=== PATIENT | female | born 1965 | race Caucasian/White ===

== ENCOUNTER 2023-08-31 14:01 | Inpatient (IN) ==
[2023-08-31] MEDS ORDERED: SODIUM CHLORIDE 0.9% 1,000 ML IV ONE (14:17)
[2023-08-31] MEDS ORDERED: ONDANSETRON INJ 2 MG/ML 2 ML VIAL IV STA (14:17)
--- NOTE | 2023-08-31 14:17 | ED Triage Note ---
Date of Service August 31, 2023 History of Present Illness This patient was briefly evaluated while in triage. An abbreviated physical exam was performed. This patient is a 57-year-old Female who presents to the ED for evaluation of vomiting that began today. Diagnosed with diverticulitis yesterday, was not having vomiting yesterday. Pain is a little better now in abdomen. Physical Exam CONSTITUTIONAL: uncomfortable SKIN: pink, warm, dry CARDIAC: regular rate and rhythm RESPIRATORY: in no respiratory distress, lungs clear to auscultation ABDOMEN: diffusely tender Initial orders for labs and / or imaging were placed and patient was placed in the waiting area until a bed is available. Please see further documentation for the full ED course.
--- NOTE | 2023-08-31 15:21 | Emergency Department Note ---
History of Present Illness General Chief complaint: Vomiting Stated complaint: VOMITING Time Seen by Provider: 08/31/23 15:13 Source: patient, family (), RN notes reviewed and old records reviewed (Reviewed a CAT scan that she had done on 08-30-2023) Mode of arrival: ambulatory Limitations: no limitations History of Present Illness Maximum Pain Intensity: 5 This patient is a 57-year-old female who I saw yesterday and diagnosed with diverticulitis, comes back after having multiple episodes of vomiting. I had talked her about staying in the hospital versus discharge yesterday but she wanted to go home. I put her on Cipro and Flagyl as she does have multiple other allergies. She says that the pain is about 50% last. She has not been throwing up blood. She not sure when her last bowel movement was she did not have one today. No dysuria hematuria no trauma or injury. She did okay taking the meds last night when she was here. she is concerned it could be related to the medication does tend to be sensitive to medications Home Medications Medication Instructions Recorded Confirmed Type gabapentin 300 mg capsule 300 mg PO TID PRN Pain 07/25/23 08/31/23 History ondansetron HCl 4 mg tablet 4 mg PO PRN #30 tabs 07/25/23 08/31/23 Rx ubrogepant 100 mg tablet (Ubrelvy) 100 mg PO ONCE PRN migraine 07/25/23 08/31/23 Rx headache #10 tabs cholecalciferol (vitamin D3) 1,250 50,000 unit PO .weekly #14 caps 07/28/23 08/31/23 Rx mcg (50,000 unit) capsule ciprofloxacin HCl 500 mg tablet 500 mg PO BID #20 tabs 08/30/23 08/31/23 Rx (Cipro) metronidazole 500 mg tablet 500 mg PO TID #30 tabs 08/30/23 08/31/23 Rx multivitamin 1 tab PO DAILY 08/30/23 08/31/23 History tramadol 50 mg tablet 50 mg PO Q6H PRN pain #14 tabs 08/30/23 08/31/23 Rx Allergies Allergy/AdvReac Type Severity Reaction Status Date / Time azithromycin Allergy Unknown UTI Verified 08/31/23 17:11 bee venom protein (honey bee) Allergy Unknown Unknown Verified 08/31/23 17:11 codeine Allergy Unknown can not Verified 08/31/23 17:11 breathe influenza virus vaccine, Allergy Unknown Unknown Verified 08/31/23 17:11 specific Penicillins Allergy Unknown Rash Verified 08/31/23 17:11 aspirin Allergy Rash Verified 08/31/23 17:11 avocado Allergy Unknown Verified 08/31/23 17:11 hydromorphone [From Dilaudid] Allergy can not Verified 08/31/23 17:11 breathe morphine Allergy can not Verified 08/31/23 17:11 breath Past Med/Surg History Social History Smoking Status: Former smoker Hx Alcohol Use: Yes Alcohol type: beer Hx Substance Use: No Preferred Language: Belarusian Communication Ability: Effective Test Eng Required: No Beliefs That Will Affect Care: None Current Living Situation: Significant Other Other Information That Helps Us Care for You: No Feels Safe at Home: Yes Safety Concerns: Feels Safe At This Time Assistive Devices: None and Glasses Immunizations: Past med historydiverticulitis Social history she is does not smoke Review of Systems A total of 10 systems reviewed and were otherwise negative Physical Exam Vital Signs Vital Signs - 24 hr 08/31/23 14:12 08/31/23 16:01 Temperature 36.1 C L Temperature Source Temporal Artery Scan Pulse Rate 73 Pulse Rate [Apical] 95 H Respiratory Rate 21 18 Blood Pressure 137/101 H Blood Pressure [Right Arm] 161/83 H Blood Pressure Mean 113 Blood Pressure Mean [Right Arm] 109 Pulse Oximetry 97 97 Oxygen Delivery Method Room Air Room Air Sepsis Recent Fever Within 48 Hours No Sepsis New/Unexplained Change in Mental Status N/A Sepsis Action Taken by Nursing No Action Required General: Well developed well nourished middle-age female who is actively vomiting with yellowish emesis in an emesis bag but in no acute respiratory distress, breathing comfortably on room air. Normal speech HEENT: Normal cephalic atraumatic. Pupils are equal round and reactive to light. Extraocular movements are intact. Oropharynx is pink with moist mucous membranes. No swelling of the mouth lips or tongue. Neck: Supple with a midline trachea. No meningeal signs or stiffness, no JVD or bruits. No Stridor. Chest: Clear to auscultation bilaterally. No wheezes or rhonchi. No increased work of breathing. Heart: Regular rate and rhythm without murmurs or gallops. Abdomen: Soft ,moderately tender in left lower quadrant without rebound guarding or rigidity. Extremities: No cyanosis clubbing or edema. No calf tenderness or assymetry Spine/Back. Non tender to palpation. No CVA tenderness Skin: Good turgor without rashes. Neurologic exam: Cranial nerves two through 12 are intact. Motor and sensation are intact and symmetrical throughout. Course Administered Medications Parenteral Electrolytes (Plasma-Lyte A Ph 7.4) 1,000 mls @ 125 mls/hr IV .Q8H NARENDRA Stop: 09/30/23 17:29 Last Infusion: 08/31/23 18:01 Dose: 0 mls/hr Documented By: Admin: 08/31/23 17:35 Dose: 125 mls/hr Documented By: HANNA Ciprofloxacin (Cipro / D5w) 400 mg in 200 mls @ 100 mls/hr IV Q12H NARENDRA; Protocol Stop: 09/10/23 19:59 Last Admin: 08/31/23 19:23 Dose: 100 mls/hr Documented By: Metronidazole (Flagyl) 500 mg in 100 mls @ 100 mls/hr IV Q8H NARENDRA; Protocol Stop: 09/10/23 17:59 Last Infusion: 08/31/23 19:23 Dose: 0 mls/hr Documented By: Admin: 08/31/23 18:01 Dose: 100 mls/hr Documented By: NRPipe Discontinued Medications Sodium Chloride (Nss) 1,000 mls @ 999 mls/hr IV .Q1H1M ONE Stop: 08/31/23 15:17 Last Infusion: 08/31/23 17:13 Dose: 0 mls/hr Documented By: Admin: 08/31/23 16:01 Dose: 999 mls/hr Documented By: NRB Parenteral Electrolytes (Plasma-Lyte A Ph 7.4) 1,000 mls @ 999 mls/hr IV .Q1H1M ONE Stop: 08/31/23 18:26 Last Admin: 08/31/23 17:55 Dose: Not Given Documented By: HANNA Pantoprazole Sodium 40 mg/ (Syringe) 10 mls @ 5 mls/min IV NOW ONE Stop: 08/31/23 20:01 Last Admin: 08/31/23 20:32 Dose: 5 mls/min Documented By: Famotidine 20 mg/ Syringe 5 mls @ 2.5 mls/min IV NOW ONE Stop: 08/31/23 20:16 Last Admin: 08/31/23 20:32 Dose: 2.5 mls/min Documented By: Miscellaneous (Patient's Height &/Or Weight Needed) 1 each N/A NOW STA Stop: 08/31/23 20:04 Last Admin: 08/31/23 20:12 Dose: 1 each Documented By: Ondansetron HCl (Ondansetron Inj 2 Mg/Ml 2 Ml Vial) 4 mg IV NOW STA Stop: 08/31/23 14:18 Last Admin: 08/31/23 16:02 Dose: 4 mg Documented By: NRPipe Medical Decision Making Differential Diagnosis Diverticulitis, dehydration, diverticular abscess, colitis, electrolyte or metabolic abnormality Medical Records Attestation: I reviewed the patient's medical records. Home Medications Current Medication List: was personally reviewed by me Laboratory Data Attestation: I reviewed the patient's lab results. 08/31/23 15:55 08/31/23 15:55 Lab Results 08/31/23 08/31/23 08/31/23 Range/Units 15:55 15:55 15:55 WBC 11.91 H (4.8-10.8) K/ul RBC 4.52 (4.20-5.40) M/uL Hgb 14.2 (12.0-16.0) g/dl Hct 39.6 (37.0-47.0) % MCV 87.6 (80.0-100.0) fL MCH 31.4 (25.0-34.0) pg MCHC 35.9 (32.0-36.0) g/dL RDW Std Deviation 39.0 (36.4-46.3) fL RDW Coeff of Mt 12.1 (11.5-14.5) % Plt Count 302 (130-400) K/uL MPV 11.2 (9.4-12.4) fL Immature Gran % (Auto) 0.5 % Neut % (Auto) 88.6 % Lymph % (Auto) 8.1 % [place] % (Auto) 2.5 % Eos % (Auto) 0.0 % Baso % (Auto) 0.3 % Neut # (Auto) 10.55 H (1.40-6.50) K/uL Lymph # (Auto) 0.97 L (1.20-3.40) K/uL [place] # (Auto) 0.30 (0.11-0.59) K/uL Eos # (Auto) 0.00 (0.00-0.50) K/uL Baso # (Auto) 0.03 (0.00-0.20) K/uL Immature Gran # (Auto) 0.06 (0.01-0.20) K/uL Sodium 137 (136-145) mmol/L Potassium 3.5 (3.5-5.1) mmol/L Chloride 103 (98-107) mmol/L Carbon Dioxide 23 (21-32) mmol/L Anion Gap 11 (3-11) BUN 19 (6-23) mg/dl Creatinine 0.77 (0.6-1.2) mg/dl Est Cr Clr Drug Dosing Not Reportable Est GFR ( Amer) 98.6 ml/min Est GFR (Non-Af Amer) 85.1 ml/min BUN/Creatinine Ratio 24.7 H (10-20) Glucose 148 H (70-99(Fasting)) mg/dl Calcium 9.5 (8.6-10.3) mg/dl Magnesium 1.9 (1.7-2.4) mg/dl Total Bilirubin 0.7 (0.2-1.0) mg/dl AST 38 (13-39) U/L ALT 54 H (7-52) U/L Alkaline Phosphatase 89 (34-104) U/L Total Protein 7.6 (6.0-8.3) gm/dl Albumin 4.4 (3.4-5.0) gm/dl Globulin 3.2 (2.5-4.0) gm/dl Albumin/Globulin Ratio 1.4 (0.9-2) Lipase 21 (11-82) U/L Urine Color Dark Yellow Urine Appearance Turbid A (Clear) Urine pH 5.5 (4.5-7.5) Ur Specific [place] 1.033 H (1.000-1.030) Urine Protein 2+ H (Negative) Urine Glucose (UA) Negative (Negative) Urine Ketones 2+ H (Negative) Urine Blood 2+ H (Negative) Urine Nitrite Positive A (Negative) Urine Bilirubin 1+ H (Negative) Urine Urobilinogen Negative (Negative) Ur Leukocyte Esterase 1+ H (Negative) Urine WBC (Auto) 5-10 H (0-5) /hpf Urine RBC (Auto) 0-4 (0-4) /hpf U Hyaline Cast (Auto) 10-30 H (0-5) /lpf U Epithel Cells (Auto) >30 H (0-5) /lpf Urine Bacteria (Auto) 1+ H (Negative) Urine Crystals Not Reportable Urine Yeast Not Reportable MDM Narrative This patient comes in as scribed above she was diagnosed with diverticulitis yesterday returns with nausea and vomiting and not feeling well. She was seen in triage her orders were placed. IV access was established and she was hydrated 1 L normal saline bolus and Zofran 4 mg IV which were ordered in triage. I repeated her labs. Her white count remains mildly elevated 11. She is not anemic. She is no sick electrolyte or metabolic abnormalities. Nothing she has liver gallbladder or pancreas disease acutely. With the IV Zofran and IV fluids she was feeling a lot better but I do think needs to be admitted/observed for further inpatient treatment when she had diverticulitis before they had to do IV antibiotics. She is a hard time tolerating a lot of different medications. I did discuss case and consulted with Dr. Ryan as well as Janine, our ED pharmacist, and they had recommended that we continue this Cipro for 100 mg IV as well as IV Flagyl. She has no evidence discussed she had an allergic reaction. She has had no facial swelling shortness of breath or hives. Dr. ryan saw the patient and will admit/observe her for these measures. Impression & Plan Abdominal pain, Acute diverticulitis, Vomiting, Acute dehydration Discharge Plan Visit Data Chief Complaint: Vomiting Stated Complaint: VOMITING ED Provider: Joel Vidales Discharge Problem: Abdominal pain, Acute diverticulitis, Vomiting, Acute dehydration Patient Disposition: Admitted As Inpatient Discharge Instructions Interventions: ED Discharge Assessment Last Done: 08/31/23 19:55
[2023-08-31 16:29] LABS: Basophils # (auto) 0.03 K/uL (0.00-0.20); Basophils % (auto) 0.3 %; Hematocrit (blood only) 39.6 % (37.0-47.0); Hemoglobin 14.2 g/dl (12.0-16.0); Immature Granulocytes # (auto) 0.06 K/uL (0.01-0.20); Immature Granulocytes % (auto) 0.5 %; Lymphocytes # (auto) 0.97 K/uL (1.20-3.40); Lymphocytes % (auto) 8.1 %; Mean Corpuscular Hemoglobin 31.4 pg (25.0-34.0); Mean Corpuscular Hgb Conc 35.9 g/dL (32.0-36.0); Mean Corpuscular Volume 87.6 fL (80.0-100.0); Mean Platelet Volume 11.2 fL (9.4-12.4); Monocytes % (auto) 2.5 %; Neutrophils # (auto) 10.55 K/uL (1.40-6.50); Neutrophils % (auto) 88.6 %; Platelet Count 302 K/uL (130-400); RDW Coefficient of Variation 12.1 % (11.5-14.5); Red Blood Count 4.52 M/uL (4.20-5.40); White Blood Count 11.91 K/ul (4.8-10.8)
[2023-08-31 16:34] LABS: Appearance Urine Turbid (Clear); Bacteria Urine Automated 1+ (Negative); Blood Urine 2+ (Negative); Color Urine Dark Yellow; Epithelial Cell Urine Auto >30 /lpf (0-5); Glucose Urine UA Negative (Negative); Ketones Urine 2+ (Negative); Leukocyte Esterase Urine 1+ (Negative); Nitrite Urine Positive (Negative); Protein Urine 2+ (Negative); RBC Urine Automated 0-4 /hpf (0-4); Specific Gravity Urine 1.033 (1.000-1.030); Urobilinogen Urine Negative (Negative); pH Urine 5.5 (4.5-7.5)
[2023-08-31 16:36] LABS: Bilirubin Urine 1+ (Negative)
[2023-08-31 16:41] LABS: Alanine Aminotransferase 54 U/L (7-52); Albumin Globulin Ratio 1.4 (0.9-2); Albumin Level 4.4 gm/dl (3.4-5.0); Alkaline Phosphatase 89 U/L (34-104); Anion Gap 11 (3-11); Aspartate Aminotransferase 38 U/L (13-39); BUN Creatinine Ratio 24.7 (10-20); Bilirubin,Total 0.7 mg/dl (0.2-1.0); Blood Urea Nitrogen 19 mg/dl (6-23); Calcium 9.5 mg/dl (8.6-10.3); Carbon Dioxide 23 mmol/L (21-32); Chloride 103 mmol/L (98-107); Est GFR (African American) 98.6 ml/min; Est GFR (Non-African American) 85.1 ml/min; Globulin 3.2 gm/dl (2.5-4.0); Glucose 148 mg/dl (70-99(Fasting)); Lipase 21 U/L (11-82); Magnesium 1.9 mg/dl (1.7-2.4); Potassium 3.5 mmol/L (3.5-5.1); Sodium 137 mmol/L (136-145); Total Protein 7.6 gm/dl (6.0-8.3)
--- NOTE | 2023-08-31 17:25 | History & Physical Report ---
Date of Service August 31, 2023 Assessment & Plan (1) Acute diverticulitis: Plan: Nausea/vomiting, diverticulitis failing outpt tx Patient was discharged home on 08/30 on ciprofloxacin and Flagyl, has continued to have intractable nausea/vomiting and pain and cannot keep medications down Mild leukocytosis without left shift, no gross electrolyte derangement, no ANGI CTA/P from 08/30/2023: Diverticulitis of the sigmoid colon with wall thickening and inflammation. Gallbladder upper limit of normal in diameter without signs of acute ductal obstruction. Bilirubin is not elevated, AST is normal, ALT chronically with trace elevation - PCN allergic. DId ok with cipro/flagyl but then had vomiting. No skin rash, did tolerate initial dose in ER without reaction. We will switch to IV, and treat for potential gastritis with PPI/H2 -Zofran as needed Tylenol first-line IV for pain, patient with reactions to morphine in the past. Pt has tolerated tramadol in the past, this is continued. No ANGI, is with contracted BUN/creatinine ratio and appears dry. 1 L of Plasma-Lyte given and well continue 1 L of supplemental fluids until p.o. improves - Last dose of cipro+flagyl this AM at 9am. Vomited at 10-11 and 'tasted like medicine'. Unclear how much was actually kept down --> Start cipro IV @ 2000. Start flagyl q8h on admit (2) Vomiting: (3) Chronic migraine w/o aura w/o status migrainosus, not intractable: Plan: History of chronic migraine No acute change in management at time of admission (4) Labile blood glucose: Plan: - BSG 148 on admit - Pt reprots has had labile BSG and dropped to 40s even with small amounts of scaled insulin in the past - Insulin deferred - spot check BSG, daily BMP. If >180 consistently --> conservative sliding scale Plan DVT prophylaxis: Lovenox Disposition: Medical/surgical Diet: Clears as tolerated CODE STATUS: Full code History of Present Illness Primary Care Provider: ELEUTERIO Singh is a 57-year-old female with a past medical history of diverticulitis and chronic migraine who was seen in the ER yesterday and returns with multiple episodes of vomiting. Patient preferred discharge home yesterday but has continued to have recurrent nausea/vomiting and is recommended for admission. Seen at the bedside with her present. She reports that she has had several days of abdominal pain, was seen in the ER yesterday and wanted to go home as she had had 1 episode of this before but while she tolerated the dose of antibiotics in the ER and 1 dose last night after taking antibiotics this morning about an hour or 2 later she vomited and has continued to feel very poor. Cannot keep liquids down. Has started to feel weak and washed out. Continues to have left lower abdominal pain maybe 50% better than prior, but still bothersome to her. No bloody or black bowel movements. Emesis has been bright yellow "like a [place]га ". Has not had chills, has felt warm. She does not have history of diabetes, notes that she was put on sliding scale insulin once in the past and has very labile blood sugar and rapidly drops into the 40s. She does not take any antiglycemic's normally does not use tobacco products or alcohol. Full code Allergies Allergy/AdvReac Type Severity Reaction Status Date / Time azithromycin Allergy Unknown UTI Verified 08/31/23 17:11 bee venom protein (honey bee) Allergy Unknown Unknown Verified 08/31/23 17:11 codeine Allergy Unknown can not Verified 08/31/23 17:11 breathe influenza virus vaccine, Allergy Unknown Unknown Verified 08/31/23 17:11 specific Penicillins Allergy Unknown Rash Verified 08/31/23 17:11 aspirin Allergy Rash Verified 08/31/23 17:11 avocado Allergy Unknown Verified 08/31/23 17:11 hydromorphone [From Dilaudid] Allergy can not Verified 08/31/23 17:11 breathe morphine Allergy can not Verified 08/31/23 17:11 breath Home Medications Medication Instructions Recorded Confirmed Type gabapentin 300 mg capsule 300 mg PO TID PRN Pain 07/25/23 08/31/23 History ondansetron HCl 4 mg tablet 4 mg PO PRN #30 tabs 07/25/23 08/31/23 Rx ubrogepant 100 mg tablet (Ubrelvy) 100 mg PO ONCE PRN migraine 07/25/23 08/31/23 Rx headache #10 tabs cholecalciferol (vitamin D3) 1,250 50,000 unit PO .weekly #14 caps 07/28/23 08/31/23 Rx mcg (50,000 unit) capsule ciprofloxacin HCl 500 mg tablet 500 mg PO BID #20 tabs 08/30/23 08/31/23 Rx (Cipro) metronidazole 500 mg tablet 500 mg PO TID #30 tabs 08/30/23 08/31/23 Rx multivitamin 1 tab PO DAILY 08/30/23 08/31/23 History tramadol 50 mg tablet 50 mg PO Q6H PRN pain #14 tabs 08/30/23 08/31/23 Rx Past Med/Surg History Social History Smoking Status: Never smoker Preferred Language: Arabic Feels Safe at Home: Yes Physical Exam Physical Exam: General: A&Ox3. NAD. Cooperative. HEENT: Atraumatic, normocephalic. MM dry. Vision/hearing intact Pulm: CTAB A&P. -wheezes, -rales, -rhonchi. Symmetrical chest rise. No increased work of breathing. No respiratory distress. Cardiac: RRR, -mrg. Radial pulses intact and symmetrical. Abdominal: LLQ TTP without rebound/guarding. Ext: Warm, dry. No edema Results & Data Results & Data Vital Signs (Past 12 Hours) Vital Signs Temp Pulse Resp BP Pulse Ox O2 Del Method 08/31/23 14:12 36.1 C L 73 21 137/101 H 97 Room Air PG Care Time/CCT Total # of Minutes Spent Total Time Spent with Patient: Total time spent is greater than 50% in coordination of care (as documented) at patient's floor/unit and/or counseling patient: Coding Level of Care Code 33018 INT INP/OBS CARE 2/55MIN Diagnoses Acute diverticulitis K57.92 Vomiting R11.10 Chronic migraine w/o aura w/o status migrainosus, not intractable G43.709 Labile blood glucose R73.09
[2023-08-31] MEDS ORDERED: ONDANSETRON INJ 2 MG/ML 2 ML VIAL IV PRN (17:26)
[2023-08-31] MEDS ORDERED: PLASMA-LYTE A 1,000 ML IV ONE (17:26)
[2023-08-31] MEDS: PLASMA-LYTE A 1,000 ML IV SCH (17:35)
[2023-08-31] MEDS: metroNIDAZOLE 500 MG/100 ML BAG IV SCH (18:01)
[2023-08-31] MEDS: CIPROFLOXACIN / D5W 400 MG/200 ML BAG IV SCH (19:23)
[2023-08-31] MEDS ORDERED: traMADol HCL 50 MG TABLET PO PRN (19:55)
[2023-08-31] MEDS ORDERED: PANTOprazole 40 MG in SYRINGE 0 ML IV ONE (20:00)
[2023-08-31] MEDS ORDERED: Patient's HEIGHT &/or WEIGHT Needed STA (20:03)
[2023-08-31] MEDS ORDERED: FAMOTIDINE 20 MG in SYRINGE 3 ML IV ONE (20:15)
[2023-09-01] MEDS: metroNIDAZOLE 500 MG/100 ML BAG IV SCH ×3 (01:45→17:01)
[2023-09-01] MEDS: PLASMA-LYTE A 1,000 ML IV SCH ×3 (08:21→19:10)
[2023-09-01] MEDS: ACETAMINOPHEN 1,000 MG/100 ML VIAL IV PRN ×2 (08:24→21:45)
[2023-09-01] MEDS: CIPROFLOXACIN / D5W 400 MG/200 ML BAG IV SCH ×2 (08:27→19:45)
[2023-09-01] MEDS: PANTOprazole 40 MG in SYRINGE 0 ML IV SCH (10:37)
--- NOTE | 2023-09-01 15:35 | Hospitalist Progress Note ---
Date of Service September 01, 2023 Assessment & Plan (1) Acute diverticulitis: Plan: uncomplicated sigmoid colon remains on IV cipro/flagyl - continue such leave on clears - still with considerable LLQ pain supportive care including IVF replace low K repeat BMP/mag in am will need colonoscopy in 6-8 weeks as outpatient this is her 2nd episode of diverticulitis to her recollection (2) Chronic migraine w/o aura w/o status migrainosus, not intractable: Plan: has migraine at this time tramadol prn tylenol prn (3) Labile blood glucose: Plan: Hba1c 5.4% in June 2023 glucose stable while here (4) Hypokalemia: Plan: replace IV + PO repeat BMP with mag in am Plan DVT prophylaxis: Lovenox pt requests to talk with plug maker about diverticulosis diet Admission and Anticipated Discharge Date Admission Date: August 31, 2023 Subjective still with considerable LLQ pain improved from admission, but still severe no further nausea/emesis no abd pain in RUQ (I told her that CT showed gallstones) tolerating clear liquids no fever has severe migraine previously took tramadol chronically for such she was taken off the tramadol by neurology prescribed ubrogepant by neuro but "it doesn't work" Review of Systems Review of Systems: gen - no fevers or chills; fatigued cv - no chest pain pulm - no dyspnea Physical Exam Physical Exam: gen - looks uncomfortable, awake/alert mouth - MMM neck - no JVD heart - RRR, s1 s2, no murmur lungs - CTA b/l abd - soft, tender LLQ to palpation; BS+; no peritoneal signs; RUQ - NO TENDERNESS to palpation ext - no edema, pulses 2+ b/l Results & Data Results & Data Vital Signs (Past 12 Hours) Vital Signs Temp Pulse Resp BP Pulse Ox O2 Del Method 09/01/23 15:30 36.7 C 63 18 111/72 97 Room Air 09/01/23 07:41 36.8 C 61 16 115/78 95 Room Air Laboratory Results Laboratory Results - last 24 hr 09/01/23 09/01/23 15:54 15:54 WBC 7.76 RBC 4.01 L Hgb 12.5 Hct 35.4 L MCV 88.3 MCH 31.2 MCHC 35.3 RDW Std Deviation 39.0 RDW Coeff of Mt 12.1 Plt Count 273 MPV 10.7 Sodium 140 Potassium 3.2 L Chloride 107 Carbon Dioxide 25 Anion Gap 8 BUN 11 Creatinine 0.81 Est Cr Clr Drug Dosing 81.3 Est GFR ( Amer) 92.8 Est GFR (Non-Af Amer) 80.1 BUN/Creatinine Ratio 13.6 Glucose 103 H Calcium 8.6 PG Care Time/CCT Total # of Minutes Spent Total Time Spent with Patient: Total time spent is greater than 50% in coordination of care (as documented) at patient's floor/unit and/or counseling patient: Coding Level of Care Code 15290 SUB INP/OBS CARE 12/11MIN Diagnoses Acute diverticulitis K57.92 Chronic migraine w/o aura w/o status migrainosus, not intractable G43.709 Labile blood glucose R73.09 Hypokalemia E87.6
[2023-09-01 16:12] LABS: Hematocrit (blood only) 35.4 % (37.0-47.0); Hemoglobin 12.5 g/dl (12.0-16.0); Mean Corpuscular Hemoglobin 31.2 pg (25.0-34.0); Mean Corpuscular Hgb Conc 35.3 g/dL (32.0-36.0); Mean Corpuscular Volume 88.3 fL (80.0-100.0); Mean Platelet Volume 10.7 fL (9.4-12.4); Platelet Count 273 K/uL (130-400); RDW Coefficient of Variation 12.1 % (11.5-14.5); Red Blood Count 4.01 M/uL (4.20-5.40); White Blood Count 7.76 K/ul (4.8-10.8)
[2023-09-01 16:38] LABS: BUN Creatinine Ratio 13.6 (10-20); Calcium 8.6 mg/dl (8.6-10.3); Creatinine Clr Calc Pharmacy 81.3 ml/min; Est GFR (African American) 92.8 ml/min; Est GFR (Non-African American) 80.1 ml/min; Potassium 3.2 mmol/L (3.5-5.1)
[2023-09-01] MEDS ORDERED: POTASSIUM CHLORIDE CRTAB 20 MEQ TABCR PO STA (18:19)
[2023-09-01] MEDS: NSS + 20MEQ KCL 20 MEQ/1,000 ML BAG IV SCH (19:45)
[2023-09-02] MEDS: metroNIDAZOLE 500 MG/100 ML BAG IV SCH ×3 (02:05→18:06)
[2023-09-02] MEDS ORDERED: Nursing to Pharmacy Communication SCH (03:30)
[2023-09-02 07:58] LABS: BUN Creatinine Ratio 10.4 (10-20); Calcium 8.8 mg/dl (8.6-10.3); Creatinine Clr Calc Pharmacy 85.5 ml/min; Est GFR (African American) 98.6 ml/min; Est GFR (Non-African American) 85.1 ml/min; Potassium 3.4 mmol/L (3.5-5.1)
[2023-09-02] MEDS: CIPROFLOXACIN / D5W 400 MG/200 ML BAG IV SCH ×2 (08:23→20:29)
[2023-09-02] MEDS ORDERED: POTASSIUM CHLORIDE CRTAB 20 MEQ TABCR PO STA (11:15)
[2023-09-02] MEDS: NSS + 20MEQ KCL 20 MEQ/1,000 ML BAG IV SCH ×2 (11:39→23:54)
[2023-09-02] MEDS: PANTOprazole 40 MG in SYRINGE 0 ML IV SCH (11:56)
--- NOTE | 2023-09-02 19:01 | Hospitalist Progress Note ---
Date of Service September 02, 2023 Assessment & Plan (1) Acute diverticulitis: Plan: uncomplicated sigmoid colon remains on IV cipro/flagyl - continue such leave on clears - still with considerable LLQ pain supportive care including IVF replace low K repeat BMP/mag in am will need colonoscopy in 6-8 weeks as outpatient this is her 2nd episode of diverticulitis to her recollection (2) Chronic migraine w/o aura w/o status migrainosus, not intractable: Plan: has migraine at this time tramadol prn tylenol prn (3) Labile blood glucose: Plan: Hba1c 5.4% in June 2023 glucose stable while here (4) Hypokalemia: Plan: replace IV + PO repeat BMP with mag in am Plan DVT prophylaxis: Lovenox pt requests to talk with finish inspector about diverticulosis diet Admission and Anticipated Discharge Date Admission Date: September 01, 2023 Subjective Patient states that she is feeling better. Her pain is improving. She had a bowel movement. She is tolerating a clear liquid diet but is not overdoing it for the time being. She wants to take it slow. Review of Systems Review of Systems: All systems reviewed & are unremarkable except as noted in Subjective Physical Exam Physical Exam: General: Awake, conversant Heart: S1, S2/regular rate and rhythm, no murmur rubs or gallops Lungs: Clear to auscultation bilaterally. Normal effort Abdomen: Soft/nondistended. Tenderness to palpation in the left lower quadrant. No rebound, rigidity or guarding. No hepatosplenomegaly Extremities: No clubbing/cyanosis. No edema Behavior: Appropriate, cooperative Results & Data Results & Data Vital Signs (Past 12 Hours) Vital Signs Temp Pulse Resp BP Pulse Ox O2 Del Method 09/02/23 15:18 36.7 C 68 20 134/88 95 Room Air 09/02/23 07:51 36.7 C 61 16 117/74 96 Room Air Laboratory Results Abnormal lab results 09/02/23 Range/Units 07:04 Potassium 3.4 L (3.5-5.1) mmol/L Chloride 108 H (98-107) mmol/L PG Care Time/CCT Total # of Minutes Spent Total Time Spent with Patient: Total time spent is greater than 50% in coordination of care (as documented) at patient's floor/unit and/or counseling patient: Coding Level of Care Code 11416 SUB INP/OBS CARE MIN Diagnoses Acute diverticulitis K57.92 Chronic migraine w/o aura w/o status migrainosus, not intractable G43.709 Labile blood glucose R73.09 Hypokalemia E87.6
[2023-09-03] MEDS: metroNIDAZOLE 500 MG/100 ML BAG IV SCH ×3 (01:39→17:40)
[2023-09-03] MEDS: CIPROFLOXACIN / D5W 400 MG/200 ML BAG IV SCH ×2 (07:56→19:33)
[2023-09-03 09:47] LABS: BUN Creatinine Ratio 7.1 (10-20); Creatinine Clr Calc Pharmacy 78.3 ml/min; Est GFR (African American) 88.8 ml/min; Est GFR (Non-African American) 76.6 ml/min; Potassium 3.6 mmol/L (3.5-5.1)
[2023-09-03] MEDS: PANTOprazole 40 MG in SYRINGE 0 ML IV SCH (10:09)
[2023-09-03] MEDS: NSS + 20MEQ KCL 20 MEQ/1,000 ML BAG IV SCH (13:56)
--- NOTE | 2023-09-03 17:14 | Hospitalist Progress Note ---
Date of Service September 03, 2023 Assessment & Plan (1) Acute diverticulitis: Plan: uncomplicated sigmoid colon remains on IV cipro/flagyl - continue such Advance to full's today as patient feels improved. supportive care including IVF replace low K repeat BMP in am will need colonoscopy in 6-8 weeks as outpatient this is her 2nd episode of diverticulitis to her recollection (2) Chronic migraine w/o aura w/o status migrainosus, not intractable: Plan: has migraine at this time tramadol prn tylenol prn (3) Labile blood glucose: Plan: Hba1c 5.4% in June 2023 glucose stable while here (4) Hypokalemia: Plan: replace IV + PO repeat BMP with mag in am Plan DVT prophylaxis: Lovenox pt requests to talk with dairy cattle farm worker about diverticulosis diet Admission and Anticipated Discharge Date Admission Date: September 01, 2023 Subjective patient feels well. Denies chest pain or shortness of breath. Belly pain has improved significantly. She says that she had 3 bowel movements and has been feeling much better. Review of Systems Review of Systems: All systems reviewed & are unremarkable except as noted in Subjective Physical Exam Physical Exam: General: Awake, conversant Heart: S1, S2/regular rate and rhythm, no murmur rubs or gallops Lungs: Clear to auscultation bilaterally. Normal effort Abdomen: Soft/nondistended. Tenderness to palpation in the left lower quadrant. No rebound, rigidity or guarding. No hepatosplenomegaly Extremities: No clubbing/cyanosis. No edema Behavior: Appropriate, cooperative Results & Data Results & Data Vital Signs (Past 12 Hours) Vital Signs Temp Pulse Resp BP Pulse Ox O2 Del Method 09/03/23 15:04 37.0 C 69 18 134/90 92 Room Air 09/03/23 08:00 Room Air 09/03/23 07:44 36.7 C 70 16 107/71 94 Room Air PG Care Time/CCT Total # of Minutes Spent Total Time Spent with Patient: Total time spent is greater than 50% in coordination of care (as documented) at patient's floor/unit and/or counseling patient: Coding Level of Care Code 40462 SUB INP/OBS CARE 2/35MIN Diagnoses Acute diverticulitis K57.92 Chronic migraine w/o aura w/o status migrainosus, not intractable G43.709 Labile blood glucose R73.09 Hypokalemia E87.6
[2023-09-04] MEDS: metroNIDAZOLE 500 MG/100 ML BAG IV SCH ×3 (01:24→18:46)
[2023-09-04 07:29] LABS: BUN Creatinine Ratio 7.9 (10-20); Calcium 9.5 mg/dl (8.6-10.3); Creatinine Clr Calc Pharmacy 73.9 ml/min; Est GFR (African American) 82.8 ml/min; Est GFR (Non-African American) 71.4 ml/min; Potassium 3.6 mmol/L (3.5-5.1)
[2023-09-04] MEDS: CIPROFLOXACIN / D5W 400 MG/200 ML BAG IV SCH ×2 (07:43→20:00)
[2023-09-04] MEDS: PANTOprazole 40 MG in SYRINGE 0 ML IV SCH (09:49)
[2023-09-04] MEDS ORDERED: ACETAMINOPHEN 500 MG TAB PO PRN (14:53)
--- NOTE | 2023-09-04 15:09 | Hospitalist Progress Note ---
Date of Service September 04, 2023 Assessment & Plan (1) Acute diverticulitis: Plan: uncomplicated sigmoid colon remains on IV cipro/flagyl - continue such Advance to solid diet today as patient feels improved. IV fluids discontinued will need colonoscopy in 6-8 weeks as outpatient this is her 2nd episode of diverticulitis to her recollection (2) Chronic migraine w/o aura w/o status migrainosus, not intractable: Plan: has migraine at this time tramadol prn tylenol prn (3) Labile blood glucose: Plan: Hba1c 5.4% in June 2023 glucose stable while here (4) Hypokalemia: Plan: replaced Plan DVT prophylaxis: Damasox patient spoke to the bottle dealer about her diverticulosis diet Likely discharge tomorrow Admission and Anticipated Discharge Date Admission Date: September 01, 2023 Subjective patient feels well. Ready to advance her diet to a solid diet. She says that she had a bowel movement today. she is pain-free. Review of Systems Review of Systems: All systems reviewed & are unremarkable except as noted in Subjective Physical Exam Physical Exam: General: Awake, conversant Heart: S1, S2/regular rate and rhythm, no murmur rubs or gallops Lungs: Clear to auscultation bilaterally. Normal effort Abdomen: Soft/nondistended. No tenderness to palpation today. No hepatosplenomegaly Extremities: No clubbing/cyanosis. No edema Behavior: Appropriate, cooperative Results & Data Results & Data Vital Signs (Past 12 Hours) Vital Signs Temp Pulse Resp BP Pulse Ox O2 Del Method 09/04/23 14:55 36.9 C 74 17 106/66 96 Room Air 09/04/23 07:31 36.8 C 60 15 117/82 97 Room Air Laboratory Results Abnormal lab results 09/04/23 Range/Units 06:40 BUN/Creatinine Ratio 7.9 L (10-20) PG Care Time/CCT Total # of Minutes Spent Total Time Spent with Patient: Total time spent is greater than 50% in coordination of care (as documented) at patient's floor/unit and/or counseling patient: Coding Level of Care Code 42134 SUB INP/OBS CARE 2/35MIN Diagnoses Acute diverticulitis K57.92 Chronic migraine w/o aura w/o status migrainosus, not intractable G43.709 Labile blood glucose R73.09 Hypokalemia E87.6
[2023-09-05] MEDS: metroNIDAZOLE 500 MG/100 ML BAG IV SCH ×2 (01:07→09:54)
[2023-09-05] MEDS: CIPROFLOXACIN / D5W 400 MG/200 ML BAG IV SCH (07:44)
[2023-09-05 07:56] VITALS: BP 143/97; PULSE 69; RESP 18; TEMP 98.1; O2SAT 94
[2023-09-05 08:03] LABS: BUN Creatinine Ratio 13.8 (10-20); Calcium 9.2 mg/dl (8.6-10.3); Creatinine Clr Calc Pharmacy 60.4 ml/min; Est GFR (African American) 64.8 ml/min; Est GFR (Non-African American) 55.9 ml/min; Potassium 3.7 mmol/L (3.5-5.1)
[2023-09-05] MEDS: PANTOprazole 40 MG in SYRINGE 0 ML IV SCH (11:28)
--- NOTE | 2023-09-05 11:58 | Discharge Summary ---
Date of Service September 05, 2023 Admission HPI Per Admitting Provider Magdalene is a 57-year-old female with a past medical history of diverticulitis and chronic migraine who was seen in the ER yesterday and returns with multiple episodes of vomiting. Patient preferred discharge home yesterday but has continued to have recurrent nausea/vomiting and is recommended for admission. Seen at the bedside with her present. She reports that she has had several days of abdominal pain, was seen in the ER yesterday and wanted to go home as she had had 1 episode of this before but while she tolerated the dose of antibiotics in the ER and 1 dose last night after taking antibiotics this morning about an hour or 2 later she vomited and has continued to feel very poor. Cannot keep liquids down. Has started to feel weak and washed out. Continues to have left lower abdominal pain maybe 50% better than prior, but still bothersome to her. No bloody or black bowel movements. Emesis has been bright yellow "like a Ольга ". Has not had chills, has felt warm. She does not have history of diabetes, notes that she was put on sliding scale insulin once in the past and has very labile blood sugar and rapidly drops into the 40s. She does not take any antiglycemic's normally does not use tobacco products or alcohol. Full code Admission Exam Per Admitting Provider General: A&Ox3. NAD. Cooperative. HEENT: Atraumatic, normocephalic. MM dry. Vision/hearing intact Pulm: CTAB A&P. -wheezes, -rales, -rhonchi. Symmetrical chest rise. No increased work of breathing. No respiratory distress. Cardiac: RRR, -mrg. Radial pulses intact and symmetrical. Abdominal: LLQ TTP without rebound/guarding. Ext: Warm, dry. No edema Principal Diagnosis Acute sigmoid diverticulitis Discharge Exam General: Awake, conversant Heart: S1, S2/regular rate and rhythm, no murmur rubs or gallops Lungs: Clear to auscultation bilaterally. Normal effort Abdomen: Soft/nondistended. No tenderness to palpation today. No hepatosplenomegaly Extremities: No clubbing/cyanosis. No edema Behavior: Appropriate, cooperative Discharge Data Allergies Allergy/AdvReac Type Severity Reaction Status Date / Time azithromycin Allergy Unknown UTI Verified 08/31/23 17:11 bee venom protein (honey bee) Allergy Unknown Unknown Verified 08/31/23 17:11 codeine Allergy Unknown can not Verified 08/31/23 17:11 breathe influenza virus vaccine, Allergy Unknown Unknown Verified 08/31/23 17:11 specific Penicillins Allergy Unknown Rash Verified 08/31/23 17:11 aspirin Allergy Rash Verified 08/31/23 17:11 avocado Allergy Unknown Verified 08/31/23 17:11 Beef Containing Products Allergy Verified 09/01/23 13:31 beef derived (bovine) Allergy Verified 09/01/23 13:31 hydromorphone [From Dilaudid] Allergy can not Verified 08/31/23 17:11 breathe morphine Allergy can not Verified 08/31/23 17:11 breath pork derived (porcine) Allergy Verified 09/01/23 13:31 Pork/Porcine Containing Allergy Verified 09/01/23 13:31 Products Consultations 08/31/23 17:08 ED Decision to Admit Stat Hospital Course (1) Acute diverticulitis: uncomplicated sigmoid colon switch from IV to p.o. ciprofloxacin and Flagyl. Patient tolerated solid meals Having bowel movements will need colonoscopy in 6-8 weeks as outpatient this is her 2nd episode of diverticulitis to her recollection (2) Chronic migraine w/o aura w/o status migrainosus, not intractable: has migraine at this time tramadol prn tylenol prn (3) Labile blood glucose: Hba1c 5.4% in June 2023 glucose stable while here (4) Hypokalemia: replaced Plan DVT prophylaxis: Lovenox patient spoke to the slip presser about her diverticulosis diet discharged today Total Time Total Time Spent Total Time Spent (In Minutes): 35 Discharge Plan Discharge Items Patient Disposition: Home - Self-Care Reason For Visit: ACUTE SIGMOID DIVERTICULITIS Discharge Diagnosis: acute sigmoid diverticulitis Hypokalemia Activity: Resume your previous activity Non-emergency contact: Primary Care Provider Call non-emergency contact if: you have any medication questions and your symptoms worsen Follow-up/Referrals: Lona Dewitt CRNP [Primary Care Provider] - 09/10/23 3:00 pm Diet: Regular Addtl Attending Provider Instructions: Advised to follow-up with PCP in 1 week Advised that you will need a colonoscopy done in 3 months. Your PCP can refer you to a floor tech. Pending Studies at Discharge: No Stand-Alone Forms: My [facility] Medications and DC Order Prescriptions: Continued cholecalciferol (vitamin D3) 1,250 mcg (50,000 unit) capsule 50,000 unit PO .weekly Qty: 14 0RF Rx Instructions: Sun gabapentin 300 mg capsule 300 mg PO TID PRN (Reason: Pain) ondansetron HCl 4 mg tablet 4 mg PO PRN Qty: 30 2RF Ubrelvy 100 mg tablet 100 mg PO ONCE PRN (Reason: migraine headache) Qty: 10 6RF multivitamin Tablet 1 tab PO DAILY ciprofloxacin HCl [Cipro] 500 mg tablet 500 mg PO BID Qty: 20 0RF metronidazole 500 mg tablet 500 mg PO TID Qty: 30 0RF tramadol 50 mg tablet 50 mg PO Q6H PRN (Reason: pain) Qty: 14 0RF Discharge Orders: Discharge Order (Routine); Ordered 09/05/23 Ordered By: Rachell Venegas/Other Patient Handouts: Diverticulitis Dc Admission Data Admit Date/Time: 09/01/23 15:33 Attending Provider: Rachell Maxwell Admit Provider: Timo eVntura Primary Care Provider: Lona Dewitt Other Providers: Henry Moulton Other Interventions: Discharge Summary Assessment (RN) Last Done: 09/05/23 11:34 Coding Level of Care Code 59570 INP/OBS DISCH >30 MIN Diagnoses Acute diverticulitis K57.92 Chronic migraine w/o aura w/o status migrainosus, not intractable G43.709 Labile blood glucose R73.09 Hypokalemia E87.6
== END 2023-09-05 13:19 | disposition home or self-care (01) | DRG 392 ==
LOC: EDINP 14:01 → ED 14:01 → SUATTDRO 17:26 → 3N 21:14 → SUATTDRO 09-01 15:33
DX: Z88.7 Allergy status to serum and vaccine; Z91.014 Allergy to mammalian meats; R73.09 Other abnormal glucose; R11.2 Nausea with vomiting, unspecified; Z88.0 Allergy status to penicillin; Z87.891 Personal history of nicotine dependence; Z88.5 Allergy status to narcotic agent; K57.32 Diverticulitis of large intestine without perforation or abscess without bleeding; Z88.1 Allergy status to other antibiotic agents; Z91.030 Bee allergy status; Z91.018 Allergy to other foods; Z79.899 Other long term (current) drug therapy; Z88.6 Allergy status to analgesic agent; E86.0 Dehydration; G43.009 Migraine without aura, not intractable, without status migrainosus